=== PATIENT | female | born 1975 | race Caucasian/White ===

== ENCOUNTER 2019-01-10 18:05 | Emergency (ER) | payer OTHER ==
[2019-01-10 19:15] VITALS: BP 131/56
--- NOTE | 2019-01-10 19:40 | UC ---
Throat Pain/Nasal Isaias HPI - HPI Summary HPI Summary: Pt presents with worsening nasal congestion, sinus pressure and pain, fatigue, ST, PND, chills and sweats, X 4 days. - History of Current Complaint Chief Complaint: UCGeneralIllness Stated Complaint: SINUS' Time Seen by Provider: 01/10/19 19:18 Hx Obtained From: Patient Hx Last Menstrual Period: October 16, 2018 ?: No Onset/Duration: Gradual Onset, Lasting Days, Still Present, Worse Since - onset Severity: Moderate Pain Intensity: 0 Cough: Nonproductive Associated Signs & Symptoms: Positive: Negative - Epiglottits Risk Factors Epiglottis Risk Factors: Negative - Allergies/Home Medications Allergies/Adverse Reactions: Allergies Allergy/AdvReac Type Severity Reaction Status Date / Time No Known Allergies Allergy Verified 01/10/19 19:16 Home Medications: Home Medications Acetaminophen/Dextromethorphan [Daytime Cold & Cough Liquid] 30 ml PO ONCE 01/10 [History Confirmed 01/10/19] PMH/Surg Hx/FS Hx/Imm Hx Previously Healthy: Yes - Surgical History Surgical History: Yes Surgery Procedure, Year, and Place: acl 2001- and meniscus repair 2005 rt knee. 2 C-SECTS (SINGLE THEN DOUBLE) 2003,2008 - Family History Known Family History: Positive: Cardiac Disease - Social History Occupation: Employed Full-time Lives: With Family Alcohol Use: Occasionally Substance Use Type: None Smoking Status (MU): Never Smoked Tobacco Have You Smoked in the Last Year: No - Immunization History Vaccination Up to Date: Yes Review of Systems All Other Systems Reviewed And Are Negative: Yes Constitutional: Positive: Fever, Chills, Fatigue Skin: Positive: Negative Eyes: Positive: Negative ENT: Positive: Sore Throat, Ear Ache, Sinus Congestion, Sinus Pain/Tenderness Respiratory: Positive: Cough Cardiovascular: Positive: Negative Gastrointestinal: Positive: Negative Genitourinary: Positive: Negative Motor: Positive: Negative Neurovascular: Positive: Negative Musculoskeletal: Positive: Negative Neurological: Positive: Negative Psychological: Positive: Negative Is Patient Immunocompromised?: No Physical Exam Triage Information Reviewed: Yes Appearance: Ill-Appearing Vital Signs: Initial Vital Signs Temp 98.1 F 01/10/19 19:11 Pulse 92 01/10/19 19:11 Resp 16 01/10/19 19:11 BP 131/56 01/10/19 19:11 Pulse Ox 100 01/10/19 19:11 Vital Signs Reviewed: Yes Eye Exam: Normal ENT: Positive: Nasal congestion, Sinus tenderness, Other - PND Dental Exam: Normal Neck exam: Normal Respiratory Exam: Normal Cardiovascular Exam: Normal Musculoskeletal Exam: Normal Neurological Exam: Normal Psychological Exam: Normal Skin Exam: Normal Throat Pain/Nasal Course/Dx - Differential Dx/Diagnosis Differential Diagnosis/HQI/PQRI: Influenza, Sinusitis, URI Provider Diagnosis: Sinusitis Discharge - Sign-Out/Discharge Documenting (check all that apply): Patient Departure All imaging exams completed and their final reports reviewed: No Studies - Discharge Plan Condition: Stable Disposition: HOME Prescriptions: Amoxicillin PO (*) [Amoxicillin 875 MG (*)] 875 mg PO Q12H #20 tab Fexofenadine/Pseudoephedrine [Mireya-D 24 Hour Tablet] 1 each PO DAILY #10 tab.er.24h Patient Education Materials: Sinusitis (ED) Referrals: Stacie Ventura MD [Primary Care Provider] - If Needed - Billing Disposition and Condition Condition: STABLE Disposition: Home
== END 2019-01-10 19:53 | disposition home or self-care (01) ==
LOC: UCCORT 18:05
DX: J32.9 Chronic sinusitis, unspecified (principal)
CPT/HCPCS: 87651; 99212; G0463